=== PATIENT | male | born 1995 | race Caucasian/White ===

== ENCOUNTER → 2022-01-14 10:49 | Outpatient (CLI) | payer OTHER, SELFPAY ==
--- NOTE | ~2022-01-14 | XR_ITS ---
XR knee RT min 4V 01/14/2022 11:56 INDICATION: Right knee pain PROCEDURE: 4 views right knee COMPARISON: No prior studies for comparison. FINDINGS: Fracture, dislocation or subluxation is not identified. No significant joint effusion. The soft tissues appear within normal limits. No foreign bodies are identified. IMPRESSION: 1: NO ACUTE BONE OR JOINT ABNORMALITY IDENTIFIED. Reviewed, dictated and finalized at location B.
== END ==
PROVIDERS: PCP Family Medicine; Visit Provider Family Medicine
DX: S86.811A Strain of other muscle(s) and tendon(s) at lower leg level, right leg, initial encounter (principal); X58.XXXA Exposure to other specified factors, initial encounter
CPT/HCPCS: 73564

== ENCOUNTER 2022-04-08 15:30 | Outpatient (RCR) | payer OTHER, SELFPAY ==
--- NOTE | 2022-02-18 15:31 | PTOPEVAL ---
PHYSICAL THERAPY INITIAL EVALUATION. Thank you for referring Brendan Morales to [facility].? The patient is scheduled to be seen for therapy? 2x/week for 4 weeks. Please review, sign, date and return this plan of care IMTIAZ. I agree with and certify that the following plan of care is medically necessary. Referring Physician Date Attending Provider: Stefany Milian MD *PT Outpatient Evaluation Start: 02/18/22 Evaluation Information Diagnosis R knee pain Onset since 09/29 Subjective Information Pt states he slipped in the Query Text:As Reported By Patient/ snow in Feburary and he Family slipped, his knee twisted and it felt like something gave. He states the pain has improved some, and he things his knee is doing better. He states stairs are still challenging and painful and he would like to improve these. He declines pain at rest, only has pain with stairs or palpation. Pt states multiple times he has thought he was perfectly better and then has done random things to reaggregate it. 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 Pain Assessment Left Knee(s) Reported Pain Level 0 Greatest Pain Intensity 3 Lower Extremity Range of Motion Gross Lower Extremity Range of Motion R knee active ROM 0-140 Comments L knee active ROM 0-140 Lower Extremity Muscle Strength Testing Gross Lower Extremity Strength L hip flexion, knee flexion/ ext 5/5 R hip flexion 4+/5 R knee flexion 4+/5 R knee extension 4/5 - poor control and stability nava with single leg sit <> stand from high - low table - anterior weight shift during functional squat Muscle Length Testing Left Hamstring Length -60 Right Hamstring Length -60 Right Prone Knee Flexor Muscle Length ( 120 Left Prone Knee Flexor Muscle Length ( 120 Palpation Assessment Palpation little to no patellar mobility on R Knee Special Tests Brenden's Negative Left,Negative Right Anterior Drawer Negative Left,N
--- NOTE | 2022-03-11 13:28 | PCPTNOTE ---
Patient called & cancelled scheduled appointment this date and future due to Pt having COVID-19.
--- NOTE | 2022-03-17 10:53 | PCPTNOTE ---
Patient called & cancelled scheduled re-evalustion this date due to having Covid. Called and left voicemail with pt to follow up with how his knee is doing. If patient does not call back in the next week he will be discharged from skilled therapy services.
--- NOTE | 2022-04-08 16:20 | PTOPDC ---
Evaluation Information Assessment Status Discharge Diagnosis R knee pain Onset 09/2021 Subjective Information Pt states he has not had any knee pain in weeks. He states his R knee feels the same as his left knee. He reports 95% improvement in his overall symptoms and function. 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 Reported Pain Level Pain Score 0: Self Report Assessment PT Clinical Summary Brendan presents to therapy today for his progress report following 6 visits of skilled therapy. Today he reports no pain, demonstrates equal knee strength, and equal knee stability nava. He demonstrates increased medial and lateral knee instability during single leg challenges but this is equal to his uninvolved side. He reports good compliance with his HEP and has met all of his therapy goals. He will be discharged from skilled therapy services at this time. Plan of Care PT Services Indicated No Treatment Frequency and to be d/c'ed Duration
== END 2022-04-09 08:59 | disposition home or self-care (01) ==
LOC: ANHPT 15:30
PROVIDERS: PCP Family Medicine; Visit Provider Family Medicine
DX: S86.812D Strain of other muscle(s) and tendon(s) at lower leg level, left leg, subsequent encounter (principal)
CPT/HCPCS: 97110; 97112; 97140; 97161; 97530

== ENCOUNTER 2023-11-22 09:17 | Outpatient (CLI) | payer SELFPAY ==
--- NOTE | ~2023-11-22 | XR_ITS ---
Right Hand Technique: PA, oblique, and lateral views were obtained. Clinical History: Pain Findings: No acute fracture or dislocation is seen. Osseous alignment is anatomic. Joint spaces are p reserved. Soft tissues are unremarkable. Impression: Unremarkable right hand. Reviewed, dictated and finalized at location M. Impression: Unremarkable right hand.
== END 2023-11-22 09:18 ==
PROVIDERS: PCP Family Medicine; Visit Provider Nurse Practitioner Family
DX: M79.644 Pain in right finger(s) (principal)
CPT/HCPCS: 73130